=== PATIENT | female | born 1950 | race Caucasian/White ===

== ENCOUNTER 2018-10-13 06:48 | Day surgery (SDC) | payer OTHER, MEDICARE ==
[2018-10-10 12:05] VITALS: BP 113/72
--- NOTE | 2018-10-10 13:40 | DIREP ---
PROCEDURE:CHEST 2 VIEWS COMPARISON:None. INDICATIONS:PRE OP, ABN STRESS, SOB FINDINGS: LUNGS/PLEURA:Hyperinflated lung mckinley. No focal consolidation, pleural effusion, or pneumothorax. VASCULATURE:Normal. Unremarkable pulmonary vasculature. CARDIAC:Normal. No cardiac silhouette abnormality or cardiomegaly. MEDIASTINUM:Normal. No visible mass or adenopathy. BONES:Normal. No fracture or visible bony lesion. OTHER:Negative. CONCLUSION: 1. No acute cardiopulmonary process. 2. Hyperinflated lung mckinley, could represent reactive airways disease versus COPD/emphysema. Dictated by: Benito Merrill MD on 10/10/2018 at 01:39 PM
[~2018-10-13] VITALS: Ht 165.1 cm; Wt 74.4 kg
[2018-10-13] VITALS (10 sets, daily range): BP systolic 103–136; BP diastolic 56–90
[~2018-10-13 06:48] MED LIST: HEPARIN ONE; NS 1000ML 1,000 ML IV SCH; NS 1000ML 1,000 ML ONE; SUBLIMAZE ONE; VALIUM PO ONE; VERSED ONE; XYLOCAINE ONE
[2018-10-13] MEDS ORDERED: ATOR20TA PO (06:56)
[2018-10-13] MEDS ORDERED: PHENERGAN ONE (07:00)
[2018-10-13] MEDS ORDERED: VALIUM ONE (07:01)
--- NOTE | 2018-10-13 12:16 | CCRH ---
DATE OF SERVICE: 10/13/2018 IDENTIFICATION: A 68-year-old female. PRECATHETERIZATION DIAGNOSES: Abnormal myocardial perfusion scan, abnormal EKG, shortness of breath and severe dyslipidemia. POSTCATHETERIZATION DIAGNOSES: Left main is patent. LAD is a very large vessel with diffuse ectatic vessel. Slow flow of dye is noted, but no flow obstruction is documented. Diagonal is patent. Circumflex is a small caliber vessel with the first obtuse marginal branch showing 50-60% stenosis in the proximal portion. The [place] circumflex is a small vessel, appears to be patent. Right coronary artery is a codominant vessel, appears to be fully patent. Left ventricle is normal in size with good wall contractility, ejection fraction of 60%. ANESTHESIA: 2% lidocaine. PREOPERATIVE MEDICATIONS: Phenergan 50 mg p.o., Valium 2.5 mg p.o., Versed 1 mg IV and fentanyl 25 mcg IV. ANTICOAGULATION: Heparin 2000 units intra-arterially, 2000 units in the flush solution, 1000 units in the dye solution. Dye used is Omnipaque. Total amount is 70 mL. CATHETERS: JL4 6-Mauritanian, JR4 6-Mauritanian, 6-[place]auritan[place] angled pigtail catheter. ARTERIAL TIME: 6 minutes. FLUOROSCOPY TIME: 1.7 minutes. PROCEDURES: Left heart catheterization, bilateral selective coronary arteriography, left ventriculography via right femoral Shantelle approach. NARRATION OF PROCEDURE: Under local anesthesia, right femoral artery was punctured percutaneously by arterial needle, guide wire passed in right femoral artery, 6-Mauritanian Cordis sheath introduced, side port of the sheath used for femoral arterial pressure monitoring. Sheath anchored with suture. Left Shantelle catheter introduced over guide wire into ascending aorta left coronary artery cannulated and left coronary angiography performed in TAJIK and FIERRO projections with craniocaudal applications to visualize all branches. Left catheter exchanged for right coronary catheter and right coronary angiography performed in TAJIK and FIERRO. This catheter exchanged for 6-[place]itan[place] pigtail catheter and catheter crossed the aortic valve and left ventricular LVEDP measured and LV gram performed in 30 degrees FIERRO view with 30 mL Omnipaque dye and panning of descending aorta attempted. Patient tolerated procedure well. No complications of procedure. Angio-Seal deployed for hemostasis. HEMODYNAMICS: LVEDP is 12 mm, LV pressure is 127/12, femoral artery pressure is 110/70 with a mean of 85. No gradient across the aorta. FINAL CONCLUSION: Non-flow obstructive lesion in the LAD with large LAD slow flow diffuse ectasia, no flow obstructive lesion in the LAD, diagonal patent. First obtuse marginal branch of the circumflex has got about 50-60% stenosis. Circumflex small vessel, patent. Right coronary artery codominant vessel, fully patent, normal LV ejection fraction. RECOMMENDATIONS: Risk factor modification, severe dyslipidemia, rule out sleep apnea manifestation based on her history, will be having a sleep study done, will be coming to the office at 3:00 on 10/14/2018 for a conference. Laxmichand MD Abelino DR: JOSE D/isiah JOB# [id number]
[2018-10-13] MEDS ORDERED: PHENERGAN PO ONE (13:00)
== END 2018-10-13 13:09 | disposition home or self-care (01) | DRG 303 ==
LOC: SDC 06:48
PROVIDERS: ATTEND Specialist
DX: I25.119 Atherosclerotic heart disease of native coronary artery with unspecified angina pectoris (principal); G47.33 Obstructive sleep apnea (adult) (pediatric); I10 Essential (primary) hypertension; R06.09 Other forms of dyspnea; R53.83 Other fatigue; E66.3 Overweight; Z68.27 Body mass index [BMI] 27.0-27.9, adult; Z79.899 Other long term (current) drug therapy; Z79.01 Long term (current) use of anticoagulants; Z82.5 Family history of asthma and other chronic lower respiratory diseases; Z82.49 Family history of ischemic heart disease and other diseases of the circulatory system
CPT/HCPCS: 36415; 71046; 85610; 85730; 93458; 99152; C1760; C1894 ×3; J1644 ×2; J2250; J3010; J7030 ×2; Q9967